=== PATIENT | male | born 1935 | race Caucasian/White ===

== ENCOUNTER → 2016-09-06 | Outpatient (CLI) | payer OTHER ==
[~2016-09-06] MED LIST: ATOR20TA PO; LISI-646 PO; METF-312 PO
[2016-09-06 09:22] LABS: Basophils # (auto) 0 uL; Basophils % (auto) 0.2 % (0.0-2.0); Eosinophils # (auto) 0.2 uL; Eosinophils % (auto) 2.1 % (0.0-7.0); Hemoglobin 14.5 g/dL (13.5-17.5); Lymphocytes # (auto) 2.5 uL; Lymphocytes % (auto) 31.6 % (10.0-50.0); Mean Corpuscular Hemoglobin 29.1 pg (28.0-32.0); Mean Corpuscular Hgb Conc. 32.9 g/dL (32.0-36.0); Mean Corpuscular Volume 88.2 fL (80.0-100.0); Mean Platelet Volume 8.1 fL (7.4-10.4); Monocytes # (auto) 0.5 uL; Monocytes % (auto) 5.9 % (0.0-12.0); Neutrophils # (auto) 4.7 uL; Neutrophils % (auto) 60.2 % (37.0-80.0); Platelet Count (auto) 284 10^3/uL (140-450); Red Cell Distribution Width 14.8 % (11.6-16.0); White Blood Cell 7.8 10^3/uL (4.4-10.8)
[2016-09-06 09:24] LABS: Urine Bilirubin Negative (Negative); Urine Blood Negative /uL (Negative); Urine Color Yellow (Yellow); Urine Glucose Normal (Normal); Urine Hyaline Cast FEW /lpf (0 - 2); Urine Ketone Negative (Negative); Urine Nitrite Negative (Negative); Urine RBC <1 /hpf (0 - 3); Urine Squamous Epithelial Cell FEW /hpf (<5); Urine Urobilinogen Normal (Negative); Urine pH 5.5 (5.0-8.0)
[2016-09-06 09:39] LABS: Albumin 3.7 g/dL (3.4-5.0); BUN/Creatinine Ratio 17.2; Bilirubin, Total 0.5 mg/dL (0.2-1.0); Calcium 8.8 mg/dL (8.5-10.1); Potassium 4.4 mmol/L (3.5-5.1); Total Protein 8.4 g/dL (6.4-8.2)
== END | disposition home or self-care (01) ==
LOC: LAB 07:58
DX: E11.22 Type 2 diabetes mellitus with diabetic chronic kidney disease (principal); I10 Essential (primary) hypertension
CPT/HCPCS: 36415; 80053; 80061; 81001; 82043; 83036; 84443; 85025

== ENCOUNTER 2017-06-16 16:20 | Emergency (ER) | payer OTHER ==
[~2017-06-16] VITALS: Ht 177.8 cm; Wt 81.6 kg
[~2017-06-16 16:20] MED LIST changes: -METF-312 PO; +METF-370 PO
[2017-06-16 17:48] LABS: Basophils # (auto) 0.1 uL; Basophils % (auto) 0.6 % (0.0-2.0); Eosinophils # (auto) 0.1 uL; Eosinophils % (auto) 1.2 % (0.0-7.0); Hematocrit 39.3 % (41.0-53.0); Hemoglobin 12.7 g/dL (13.5-17.5); Lymphocytes # (auto) 2.1 uL; Lymphocytes % (auto) 23.2 % (10.0-50.0); Mean Corpuscular Hemoglobin 28.8 pg (28.0-32.0); Mean Corpuscular Hgb Conc. 32.2 g/dL (32.0-36.0); Mean Corpuscular Volume 89.3 fL (80.0-100.0); Monocytes # (auto) 0.8 uL; Monocytes % (auto) 9.3 % (0.0-12.0); Neutrophils # (auto) 5.9 uL; Neutrophils % (auto) 65.7 % (37.0-80.0); Platelet Count (auto) 355 10^3/uL (140-450); Red Cell Distribution Width 14.5 % (11.8-14.3)
[2017-06-16 17:55] LABS: Chloride 106 mmol/L (98-107); Potassium 4.9 mmol/L (3.5-5.1); Sodium 136 mmol/L (136-145)
[2017-06-16 17:58] LABS: Alanine Aminotransferase 38 U/L (16-61); Albumin 3.2 g/dL (3.4-5.0); Anion Gap 8 (5-15); Aspartate Aminotransferase 31 U/L (15-37); BUN/Creatinine Ratio 16.2; Blood Urea Nitrogen 23 mg/dL (7-18); Calcium 8.4 mg/dL (8.5-10.1); Carbon Dioxide 22 mmol/L (21-32); GFR African American 61 mL/min; GFR Non-African American 50 mL/min; Glucose 108 mg/dL (74-106)
[2017-06-16 18:00] LABS: Alkaline Phosphatase 100 U/L (45-117); Bilirubin, Total 0.2 mg/dL (0.2-1.0); Total Protein 8.3 g/dL (6.4-8.2)
[2017-06-16] MEDS ORDERED: IBUPROFEN 800 MG TAB PO ONE (18:15)
[2017-06-16 19:25] VITALS: BP 164/82
[2017-06-30] MEDS ORDERED: MET25T PO (11:29)
[2017-06-30] MEDS ORDERED: ASPI81TA10 PO (11:29)
[2017-06-30] MEDS ORDERED: SACC250C PO (11:29)
[2017-06-30] MEDS ORDERED: DEX4T PO (11:29)
[2017-06-30] MEDS ORDERED: PANT40T PO (11:29)
[2017-06-30] MEDS ORDERED: LEVO500T21 PO (11:29)
[2017-06-30] MEDS ORDERED: METF-370 PO (11:30)
[2017-06-30] MEDS ORDERED: LISI-646 PO (11:39)
[2017-06-30] MEDS ORDERED: ATOR20TA PO (11:39)
== END 2017-06-16 20:29 | disposition home or self-care (01) ==
LOC: ER 16:25
DX: M54.31 Sciatica, right side (principal); G89.29 Other chronic pain; E11.9 Type 2 diabetes mellitus without complications; I10 Essential (primary) hypertension; M54.9 Dorsalgia, unspecified; Z79.899 Other long term (current) drug therapy
CPT/HCPCS: 36415; 70450; 72110; 80053; 84484; 85025; 93005

== ENCOUNTER 2017-06-21 18:49 | Inpatient (IN) | payer OTHER ==
[~2017-06-21] VITALS: Ht 177.8 cm; Wt 79.4 kg
[2017-06-21 20:40] VITALS: BP 149/69
[2017-06-21] MEDS ORDERED: MORPHINE SULF INJ 2 MG/ML SYRINGE 1ML IV PRN (22:15)
[2017-06-21] MEDS ORDERED: NITROGLYCERIN 0.4 MG SL TAB SL PRN (22:15)
[2017-06-21] MEDS: SODIUM CHLORIDE 0.9% 1,000 ML IV SCH (22:30)
[2017-06-21] MEDS ORDERED: ONDANSETRON HCL 4 MG/2 ML VIAL IV PRN (22:30)
[2017-06-21] MEDS ORDERED: ACETAMINOPHEN 500 MG TAB PO PRN (22:30)
[2017-06-21 23:07] LABS: Basophils # (auto) 0.1 uL; Basophils % (auto) 1.1 % (0.0-2.0); Eosinophils # (auto) 0.2 uL; Eosinophils % (auto) 2.2 % (0.0-7.0); Hematocrit 38.9 % (41.0-53.0); Hemoglobin 12.9 g/dL (13.5-17.5); Lymphocytes # (auto) 1.8 uL; Lymphocytes % (auto) 19.8 % (10.0-50.0); Mean Corpuscular Hemoglobin 29.1 pg (28.0-32.0); Mean Corpuscular Hgb Conc. 33.3 g/dL (32.0-36.0); Mean Corpuscular Volume 87.5 fL (80.0-100.0); Monocytes % (auto) 10.5 % (0.0-12.0); Neutrophils # (auto) 6.1 uL; Neutrophils % (auto) 66.4 % (37.0-80.0); Platelet Count (auto) 296 10^3/uL (140-450); Red Blood Cells 4.45 10^6/uL (4.5-5.90); Red Cell Distribution Width 14.5 % (11.8-14.3); White Blood Cell 9.2 10^3/uL (4.4-10.8)
[2017-06-21 23:46] LABS: Calcium 8.5 mg/dL (8.5-10.1); Potassium 3.9 mmol/L (3.5-5.1)
[2017-06-22] MEDS: SODIUM CHLORIDE 0.9% 1,000 ML IV SCH ×3 (05:10→14:00)
[2017-06-22 06:00] VITALS: BP 139/76
[2017-06-22] MEDS ORDERED: AZEL0.058 (07:30)
[2017-06-22] MEDS ORDERED: ASPI81TA10 PO (07:33)
[2017-06-22] MEDS ORDERED: POLY33504 PO (07:35)
[2017-06-22 08:00] VITALS: BP 113/86
[2017-06-22 12:00] VITALS: BP 159/78
[2017-06-22] MEDS: hydrALAZINE HCL 20 MG/ML VL IV PRN (13:15)
[2017-06-22] MEDS ORDERED: LORazepam 2MG/ML-1ML VIAL IV PRN (15:00)
[2017-06-22] MEDS ORDERED: MAGN400S25 PO (15:31)
[2017-06-22 17:00] VITALS: BP 150/94
[2017-06-22 20:00] VITALS: BP 149/95
[2017-06-22 22:53] VITALS: BP 149/95
[2017-06-23 04:41] VITALS: BP 151/79
[2017-06-23] MEDS: SODIUM CHLORIDE 0.9% 1,000 ML IV SCH ×2 (05:14→12:28)
[2017-06-23] MEDS: hydrALAZINE HCL 20 MG/ML VL IV PRN ×2 (05:19→21:11)
[2017-06-23 06:08] LABS: Basophils # (auto) 0 uL; Basophils % (auto) 0.4 % (0.0-2.0); Eosinophils # (auto) 0.3 uL; Eosinophils % (auto) 4.6 % (0.0-7.0); Hematocrit 34.4 % (41.0-53.0); Hemoglobin 11.6 g/dL (13.5-17.5); Lymphocytes # (auto) 1.7 uL; Lymphocytes % (auto) 25.2 % (10.0-50.0); Mean Corpuscular Hemoglobin 29.6 pg (28.0-32.0); Mean Corpuscular Hgb Conc. 33.7 g/dL (32.0-36.0); Mean Corpuscular Volume 87.7 fL (80.0-100.0); Monocytes # (auto) 0.7 uL; Monocytes % (auto) 9.5 % (0.0-12.0); Neutrophils # (auto) 4.2 uL; Neutrophils % (auto) 60.3 % (37.0-80.0); Platelet Count (auto) 278 10^3/uL (140-450); Red Blood Cells 3.92 10^6/uL (4.5-5.90); Red Cell Distribution Width 14.4 % (11.8-14.3); White Blood Cell 6.9 10^3/uL (4.4-10.8)
[2017-06-23 06:22] LABS: BUN/Creatinine Ratio 20.7; Calcium 7.9 mg/dL (8.5-10.1); Magnesium 2.2 mg/dL (1.6-2.6); Potassium 3.8 mmol/L (3.5-5.1)
[2017-06-23 09:00] VITALS: BP 158/78
[2017-06-23] MEDS ORDERED: LISINOPRIL 10 MG TAB PO ONE (11:15)
[2017-06-23] MEDS ORDERED: DEXTROSE (50%) 50ML SYRG IV PRN (11:15)
[2017-06-23] MEDS: InsuLIN REG 1unit/0.01ml Soln (100units/ml) SC SCH ×3 (11:30→21:17)
[2017-06-23] MEDS: ACCU-CHEK COMFORT CURVE STRIP VI SCH ×3 (11:30→21:17)
[2017-06-23 13:00] VITALS: BP 164/85
[2017-06-23 17:00] VITALS: BP 187/87
[2017-06-23 20:00] VITALS: BP 165/85
[2017-06-23 21:00] VITALS: BP 165/85
[2017-06-23] MEDS: ASCORBIC ACID 500 MG TAB PO SCH (21:11)
[2017-06-23] MEDS: PRO-STAT 64 30ML PO SCH (21:17)
[2017-06-24] VITALS (9 sets, daily range): BP systolic 142–169; BP diastolic 67–85
[2017-06-24] MEDS: SODIUM CHLORIDE 0.9% 1,000 ML IV SCH ×4 (04:30→14:15)
[2017-06-24] MEDS: hydrALAZINE HCL 20 MG/ML VL IV PRN ×2 (05:37→21:46)
[2017-06-24] MEDS: ACCU-CHEK COMFORT CURVE STRIP VI SCH ×4 (06:32→21:45)
[2017-06-24] MEDS: InsuLIN REG 1unit/0.01ml Soln (100units/ml) SC SCH ×4 (06:32→21:45)
[2017-06-24 06:37] LABS: Calcium 8.3 mg/dL (8.5-10.1); Potassium 3.7 mmol/L (3.5-5.1)
[2017-06-24 06:40] LABS: BUN/Creatinine Ratio 16.9
[2017-06-24] MEDS ORDERED: LISINOPRIL 10 MG TAB PO SCH (10:00)
[2017-06-24] MEDS: PRO-STAT 64 30ML PO SCH ×2 (10:00→21:45)
[2017-06-24] MEDS: ASCORBIC ACID 500 MG TAB PO SCH ×2 (10:15→21:45)
[2017-06-24] MEDS: MULTIPLE VITAMINS W/ MINERALS TAB PO SCH (10:16)
[2017-06-24] MEDS ORDERED: IOHEXOL 300 MG/ML 100ML BOTTLE IJ ONE (11:09)
[2017-06-24] MEDS ORDERED: PANTOPRAZOLE 40 MG TAB PO ONE ×2 (13:30→13:45)
[2017-06-24 13:35] LABS: Albumin 2.8 g/dL (3.4-5.0); BUN/Creatinine Ratio 19.6; Calcium 8.4 mg/dL (8.5-10.1); Potassium 3.9 mmol/L (3.5-5.1)
[2017-06-24 13:38] LABS: Bilirubin, Total 0.4 mg/dL (0.2-1.0); Total Protein 7.6 g/dL (6.4-8.2)
[2017-06-24] MEDS ORDERED: ASPirin-EC 81 mg tab PO ONE (14:15)
[2017-06-24] MEDS ORDERED: LEVOFLOXACIN 500MG 100 ML IV ONE (14:15)
[2017-06-24] MEDS ORDERED: LISINOPRIL 10 MG TAB PO ONE (14:30)
[2017-06-24] MEDS: ATORVASTATIN 20 MG TAB PO SCH (21:45)
[2017-06-25 05:00] VITALS: BP 140/74
[2017-06-25] MEDS: InsuLIN REG 1unit/0.01ml Soln (100units/ml) SC SCH ×4 (06:34→22:56)
[2017-06-25] MEDS: ACCU-CHEK COMFORT CURVE STRIP VI SCH ×4 (06:34→22:00)
[2017-06-25 09:00] VITALS: BP 145/70
[2017-06-25] MEDS: ASCORBIC ACID 500 MG TAB PO SCH ×2 (11:08→22:47)
[2017-06-25] MEDS: PANTOPRAZOLE 40 MG TAB PO SCH (11:08)
[2017-06-25] MEDS: LEVOFLOXACIN 500MG 100 ML IV SCH (11:08)
[2017-06-25] MEDS: MULTIPLE VITAMINS W/ MINERALS TAB PO SCH (11:09)
[2017-06-25] MEDS: SODIUM CHLORIDE 0.9% 1,000 ML IV SCH (11:09)
[2017-06-25] MEDS: LISINOPRIL 20 MG TAB PO SCH (11:09)
[2017-06-25 13:00] VITALS: BP 165/82
[2017-06-25] MEDS: PRO-STAT 64 30ML PO SCH ×2 (14:53→22:00)
[2017-06-25 16:57] VITALS: BP 167/76
[2017-06-25] MEDS: hydrALAZINE HCL 20 MG/ML VL IV PRN (17:44)
[2017-06-25] MEDS: ATORVASTATIN 20 MG TAB PO SCH (22:47)
[2017-06-25 23:23] VITALS: BP 137/62
[2017-06-26 05:10] VITALS: BP 153/73
[2017-06-26] MEDS: hydrALAZINE HCL 20 MG/ML VL IV PRN ×2 (05:10→22:20)
[2017-06-26] MEDS: InsuLIN REG 1unit/0.01ml Soln (100units/ml) SC SCH ×4 (06:30→22:20)
[2017-06-26] MEDS: ACCU-CHEK COMFORT CURVE STRIP VI SCH ×4 (06:30→22:20)
[2017-06-26 09:00] VITALS: BP 153/68
[2017-06-26] MEDS: PRO-STAT 64 30ML PO SCH ×2 (10:00→22:20)
[2017-06-26] MEDS: ASCORBIC ACID 500 MG TAB PO SCH ×2 (11:43→22:20)
[2017-06-26] MEDS: PANTOPRAZOLE 40 MG TAB PO SCH (11:43)
[2017-06-26] MEDS: LEVOFLOXACIN 500MG 100 ML IV SCH (11:43)
[2017-06-26] MEDS: LISINOPRIL 20 MG TAB PO SCH (11:44)
[2017-06-26] MEDS: MULTIPLE VITAMINS W/ MINERALS TAB PO SCH (11:44)
[2017-06-26 13:00] VITALS: BP 123/67
[2017-06-26 18:36] VITALS: BP 158/75
[2017-06-26] MEDS: SODIUM CHLORIDE 0.9% 1,000 ML IV SCH (18:43)
[2017-06-26 22:00] VITALS: BP 159/83
[2017-06-26] MEDS: ATORVASTATIN 20 MG TAB PO SCH (22:20)
[2017-06-27] MEDS: SODIUM CHLORIDE 0.9% 1,000 ML IV SCH (02:15)
[2017-06-27 05:12] VITALS: BP 154/76
[2017-06-27] MEDS: hydrALAZINE HCL 20 MG/ML VL IV PRN (05:20)
[2017-06-27] MEDS: InsuLIN REG 1unit/0.01ml Soln (100units/ml) SC SCH ×4 (06:40→22:00)
[2017-06-27] MEDS: ACCU-CHEK COMFORT CURVE STRIP VI SCH ×4 (06:40→22:00)
[2017-06-27 09:00] VITALS: BP 138/65
[2017-06-27] MEDS: PRO-STAT 64 30ML PO SCH ×2 (09:49→22:00)
[2017-06-27] MEDS: PANTOPRAZOLE 40 MG TAB PO SCH ×2 (10:00→10:08)
[2017-06-27] MEDS: ASCORBIC ACID 500 MG TAB PO SCH ×2 (10:07→20:58)
[2017-06-27] MEDS: LEVOFLOXACIN 500MG 100 ML IV SCH (10:07)
[2017-06-27] MEDS: MULTIPLE VITAMINS W/ MINERALS TAB PO SCH (10:08)
[2017-06-27] MEDS: LISINOPRIL 20 MG TAB PO SCH (10:08)
[2017-06-27 13:00] VITALS: BP 146/83
[2017-06-27 17:00] VITALS: BP 151/72
[2017-06-27] MEDS: ATORVASTATIN 20 MG TAB PO SCH (20:58)
[2017-06-27 22:00] VITALS: BP 155/75
[2017-06-28 03:02] VITALS: BP 103/56
[2017-06-28 05:00] VITALS: BP 160/74
[2017-06-28 05:58] LABS: Basophils # (auto) 0 uL; Basophils % (auto) 0.6 % (0.0-2.0); Eosinophils # (auto) 0.4 uL; Eosinophils % (auto) 4.8 % (0.0-7.0); Hematocrit 36.5 % (41.0-53.0); Hemoglobin 12.3 g/dL (13.5-17.5); Lymphocytes % (auto) 24.4 % (10.0-50.0); Mean Corpuscular Hemoglobin 29.1 pg (28.0-32.0); Mean Corpuscular Hgb Conc. 33.6 g/dL (32.0-36.0); Mean Corpuscular Volume 86.7 fL (80.0-100.0); Monocytes # (auto) 0.8 uL; Monocytes % (auto) 9.2 % (0.0-12.0); Nucleated Red Blood Cells % 0.1 %; Platelet Count (auto) 323 10^3/uL (140-450); Red Blood Cells 4.21 10^6/uL (4.5-5.90); Red Cell Distribution Width 14.6 % (11.8-14.3); White Blood Cell 8.2 10^3/uL (4.4-10.8)
[2017-06-28 06:19] LABS: Calcium 8.2 mg/dL (8.5-10.1); Magnesium 2.4 mg/dL (1.6-2.6)
[2017-06-28] MEDS: InsuLIN REG 1unit/0.01ml Soln (100units/ml) SC SCH ×4 (06:45→21:26)
[2017-06-28] MEDS: ACCU-CHEK COMFORT CURVE STRIP VI SCH ×4 (07:00→20:25)
[2017-06-28] MEDS: hydrALAZINE HCL 20 MG/ML VL IV PRN (08:00)
[2017-06-28 09:00] VITALS: BP 167/81
[2017-06-28] MEDS: PRO-STAT 64 30ML PO SCH ×2 (10:00→21:30)
[2017-06-28] MEDS: LEVOFLOXACIN 500MG 100 ML IV SCH (10:42)
[2017-06-28] MEDS: PANTOPRAZOLE 40 MG TAB PO SCH (10:43)
[2017-06-28] MEDS: MULTIPLE VITAMINS W/ MINERALS TAB PO SCH (10:43)
[2017-06-28] MEDS: ASCORBIC ACID 500 MG TAB PO SCH ×2 (10:43→21:25)
[2017-06-28] MEDS: LISINOPRIL 20 MG TAB PO SCH (10:44)
[2017-06-28] MEDS ORDERED: ASPirin-EC 81 mg tab PO ONE (10:45)
[2017-06-28] MEDS ORDERED: amLODIPine BESYLATE 5 MG TAB PO ONE (10:45)
[2017-06-28 13:00] VITALS: BP 136/66
[2017-06-28] MEDS ORDERED: DEXAMETHASONE SOD PHOS 4 MG/1ML SDV INJ IV ONE (15:00)
[2017-06-28 17:00] VITALS: BP 151/77
[2017-06-28] MEDS: DEXAMETHASONE SOD PHOS 4 MG/1ML SDV INJ IV SCH (20:24)
[2017-06-28] MEDS: ATORVASTATIN 20 MG TAB PO SCH (21:25)
[2017-06-29 00:07] VITALS: BP 144/82
[2017-06-29 05:00] VITALS: BP 146/72
[2017-06-29] MEDS: DEXAMETHASONE SOD PHOS 4 MG/1ML SDV INJ IV SCH ×3 (05:21→21:33)
[2017-06-29] MEDS: InsuLIN REG 1unit/0.01ml Soln (100units/ml) SC SCH ×3 (05:21→19:29)
[2017-06-29] MEDS: ACCU-CHEK COMFORT CURVE STRIP VI SCH ×3 (05:22→19:28)
[2017-06-29 06:35] LABS: Basophils # (auto) 0 uL; Basophils % (auto) 0.1 % (0.0-2.0); Eosinophils # (auto) 0 uL; Hematocrit 40.3 % (41.0-53.0); Hemoglobin 13.5 g/dL (13.5-17.5); Lymphocytes # (auto) 1.3 uL; Lymphocytes % (auto) 16.9 % (10.0-50.0); Mean Corpuscular Hemoglobin 28.9 pg (28.0-32.0); Mean Corpuscular Hgb Conc. 33.4 g/dL (32.0-36.0); Mean Corpuscular Volume 86.6 fL (80.0-100.0); Monocytes # (auto) 0.3 uL; Monocytes % (auto) 3.9 % (0.0-12.0); Neutrophils # (auto) 6.1 uL; Neutrophils % (auto) 79.1 % (37.0-80.0); Platelet Count (auto) 393 10^3/uL (140-450); Red Blood Cells 4.65 10^6/uL (4.5-5.90); Red Cell Distribution Width 14.9 % (11.8-14.3); White Blood Cell 7.7 10^3/uL (4.4-10.8)
[2017-06-29 06:53] LABS: BUN/Creatinine Ratio 27.2; Calcium 8.8 mg/dL (8.5-10.1); Potassium 4.5 mmol/L (3.5-5.1)
[2017-06-29 08:35] VITALS: BP 136/80
[2017-06-29] MEDS: PRO-STAT 64 30ML PO SCH ×2 (10:00→21:35)
[2017-06-29] MEDS ORDERED: amLODIPine BESYLATE 5 MG TAB PO SCH (10:00)
[2017-06-29] MEDS: LEVOFLOXACIN 500MG 100 ML IV SCH (10:18)
[2017-06-29] MEDS: ASCORBIC ACID 500 MG TAB PO SCH ×2 (10:18→21:33)
[2017-06-29] MEDS: PANTOPRAZOLE 40 MG TAB PO SCH (10:18)
[2017-06-29] MEDS: LISINOPRIL 20 MG TAB PO SCH (10:19)
[2017-06-29] MEDS: ASPirin-EC 81 mg tab PO SCH (10:20)
[2017-06-29] MEDS: MULTIPLE VITAMINS W/ MINERALS TAB PO SCH (10:20)
[2017-06-29 13:07] VITALS: BP 133/72
[2017-06-29] MEDS ORDERED: DEXTROSE (50%) 50ML SYRG IV PRN (13:30)
[2017-06-29 16:33] VITALS: BP 154/76
[2017-06-29] MEDS: ATORVASTATIN 20 MG TAB PO SCH (21:35)
[2017-06-29 22:00] VITALS: BP 148/75
[2017-06-30 05:00] VITALS: BP 145/62
[2017-06-30] MEDS: DEXAMETHASONE SOD PHOS 4 MG/1ML SDV INJ IV SCH ×2 (05:49→14:49)
[2017-06-30] MEDS: hydrALAZINE HCL 20 MG/ML VL IV PRN (05:51)
[2017-06-30] MEDS: InsuLIN REG 1unit/0.01ml Soln (100units/ml) SC SCH ×3 (05:52→14:49)
[2017-06-30] MEDS: ACCU-CHEK COMFORT CURVE STRIP VI SCH ×2 (06:11→14:49)
[2017-06-30 09:30] VITALS: BP 155/71
[2017-06-30] MEDS ORDERED: LEVO500T21 PO (11:29)
[2017-06-30] MEDS ORDERED: MET25T PO (11:29)
[2017-06-30] MEDS ORDERED: SACC250C PO (11:29)
[2017-06-30] MEDS ORDERED: PANT40T PO (11:29)
[2017-06-30] MEDS ORDERED: DEX4T PO (11:29)
[2017-06-30] MEDS ORDERED: ASPI81TA10 PO (11:29)
[2017-06-30] MEDS ORDERED: METF-370 PO (11:30)
[2017-06-30] MEDS ORDERED: LISI-646 PO (11:39)
[2017-06-30] MEDS ORDERED: ATOR20TA PO (11:39)
[2017-06-30] MEDS: MULTIPLE VITAMINS W/ MINERALS TAB PO SCH (11:43)
[2017-06-30] MEDS: ASCORBIC ACID 500 MG TAB PO SCH (11:43)
[2017-06-30] MEDS: PRO-STAT 64 30ML PO SCH (11:43)
[2017-06-30] MEDS: ASPirin-EC 81 mg tab PO SCH (11:43)
[2017-06-30] MEDS: LEVOFLOXACIN 500MG 100 ML IV SCH (11:43)
[2017-06-30] MEDS: PANTOPRAZOLE 40 MG TAB PO SCH (11:43)
[2017-06-30] MEDS: LISINOPRIL 20 MG TAB PO SCH (11:44)
[2017-06-30] MEDS ORDERED: metFORMIN HYDROCHLORIDE 500 MG TAB PO ONE (11:45)
[2017-06-30] MEDS ORDERED: METOPROLOL TARTRATE 25 MG TAB PO ONE (11:45)
[2017-06-30 13:00] VITALS: BP 113/69
[2017-06-30] MEDS ORDERED: metFORMIN HYDROCHLORIDE 500 MG TAB PO SCH (18:00)
[2017-06-30] MEDS ORDERED: METOPROLOL TARTRATE 25 MG TAB PO SCH (22:00)
== END 2017-06-30 16:30 | disposition home or self-care (01) | DRG 64 ==
LOC: WEST WING 18:49 → TELE-WESTW 06-22 20:36
PROVIDERS: ADMIT Internal Medicine; ATTEND Internal Medicine
DX: I63.9 Cerebral infarction, unspecified (principal); G93.6 Cerebral edema; G81.91 Hemiplegia, unspecified affecting right dominant side; B95.61 Methicillin susceptible Staphylococcus aureus infection as the cause of diseases classified elsewhere; E11.9 Type 2 diabetes mellitus without complications; E78.5 Hyperlipidemia, unspecified; L98.498 Non-pressure chronic ulcer of skin of other sites with other specified severity; R47.81 Slurred speech; G89.29 Other chronic pain; M54.5 Low back pain; I10 Essential (primary) hypertension; M19.90 Unspecified osteoarthritis, unspecified site; R29.6 Repeated falls; Z79.82 Long term (current) use of aspirin; Z85.820 Personal history of malignant melanoma of skin; Z86.73 Personal history of transient ischemic attack (TIA), and cerebral infarction without residual deficits
CPT/HCPCS: 36415; 70450; 70470; 71045; 80048; 80053; 80061; 82607; 82962; 83036; 83615; 83735; 85025; 87040; 87077; 87081; 87186; 87205; 92610; 97110; 97116; 97163; 97530; J1100; J1815; J1956